=== PATIENT | male | born 1975 | race Caucasian/White ===

== ENCOUNTER 2024-01-28 18:40 | Inpatient (IN) | payer OTHER ==
[~2024-01-28] VITALS: Ht 167.6 cm; Wt 99.7 kg
[2024-01-28] MEDS ORDERED: ATOR10TA PO (20:41)
[2024-01-28] MEDS ORDERED: ASPI81TA39 PO (20:41)
[2024-01-28] MEDS ORDERED: METO25 PO (20:42)
[2024-01-28 20:50] LABS: BASOPHILS % (AUTO) 0.7 % (0.0-2.0); EOSINOPHILS % (AUTO) 1.9 % (1.0-6.0); HEMATOCRIT 26.1 % (41-53); HEMOGLOBIN 8.6 g/dL (13.5-17.5); LYMPHOCYTES # (AUTO) 1.3 K/uL (1.0-4.8); LYMPHOCYTES % (AUTO) 18.3 % (22.0-44.0); MEAN CORPUSCULAR HEMOGLOBIN 28.4 pg (26.0-34.0); MEAN CORPUSCULAR HGB CONC 32.9 G/dL (31.0-37.0); MEAN CORPUSCULAR VOLUME 86 fL (80-100); MONOCYTES # (AUTO) 0.7 K/uL (0.1-1.0); MONOCYTES % (AUTO) 10.7 % (2.0-9.0); NEUTROPHILS # (AUTO) 4.7 K/uL (1.8-7.7); NEUTROPHILS % (AUTO) 68.4 % (40.0-70.0); PLATELET COUNT (AUTO) 173 K/uL (150-450); RED BLOOD CELL COUNT(AUTO) 3.02 MIL/uL (4.50-5.90); RED CELL DISTRIBUTION WIDTH 15.8 % (11.5-14.5); WHITE BLOOD COUNT (AUTO) 6.9 K/uL (4.5-11.0)
[2024-01-28 20:59] LABS: ANION GAP 15 mmol/L (8-16); CALCIUM, TOTAL 8.1 mg/dL (8.8-10.5); CARBON DIOXIDE 23 mmol/L (22-29); CHLORIDE 99 mmol/L (98-107); CREATININE 14.74 mg/dL (0.60-1.30); GLOMERULAR FILTR. RATE CALC 4 mL/min (>60); GLUCOSE,RANDOM 97 mg/dL (70-110); POTASSIUM 4.2 mmol/L (3.5-5.1); SODIUM SERUM 137 mmol/L (136-145); UREA NITROGEN, BLOOD 56 mg/dL (7-18)
[2024-01-28 21:08] LABS: TROPONIN I-HIGH SENSITIVITY 34 ng/L (<76)
[2024-01-28 21:12] LABS: ALCOHOL, BLOOD (SERUM) < 3 mg/dL (0-10)
[2024-01-28] MEDS: LORazepam 1 MG TABLET PO ONE (22:33)
[2024-01-28] MEDS ORDERED: HYDROCODONE/ACETAMINOPHEN 5-325 MG TABLET PO PRN (23:30)
[2024-01-28] MEDS ORDERED: IPRATROPIUM BROMIDE 0.5 MG/2.5 ML NEB SOLUTION NEB PRN (23:30)
[2024-01-28] MEDS ORDERED: MORPHINE SULFATE 2 MG/ML SYRINGE IVP PRN (23:30)
[2024-01-28] MEDS ORDERED: ACETAMINOPHEN 325 MG TABLET PO PRN (23:30)
[2024-01-28] MEDS ORDERED: ALBUTEROL SULFATE 2.5 MG/0.5 ML NEB SOLUTION NEB PRN (23:30)
[2024-01-28] MEDS ORDERED: ONDANSETRON HCL 4 MG/2 ML VIAL IVP PRN (23:30)
[2024-01-28] MEDS ORDERED: BISACODYL 10 MG RECTAL RECTAL SUPPOSITORY PR PRN (23:30)
[2024-01-28] MEDS ORDERED: MAGNESIUM HYDROXIDE SUSPENSION 30 ML UDCUP PO PRN (23:30)
[2024-01-28] MEDS: HEPARIN SODIUM,PORCINE 5,000 UNITS/ML VIAL SQ SCH (23:57)
[2024-01-29] VITALS (11 sets, daily range): BP systolic 102–180; BP diastolic 51–116; PULSE 80–91; RESP 18–20; TEMP 97.6–97.7; O2SAT 94–98
[2024-01-29] MEDS: ZOLPIDEM TARTRATE 5 MG TABLET PO PRN (00:05)
[2024-01-29 07:36] LABS: ALCOHOL, URINE DRUG SCREEN NEGATIVE (NEGATIVE); AMPHET/METH SCREEN,URINE NEGATIVE (NEGATIVE); BARBITURATE SCREEN, URINE NEGATIVE (NEGATIVE); BENZODIAZEPINES SCREEN,URINE NEGATIVE (NEGATIVE); CANNABINOID SCREEN,URINE NEGATIVE (NEGATIVE); COCAINE SCREEN,URINE NEGATIVE (NEGATIVE); METHADONE SCREEN, URINE NEGATIVE (NEGATIVE); OPIATE SCREEN,URINE NEGATIVE (NEGATIVE); PHENCYCLIDINE SCREEN,URINE NEGATIVE (NEGATIVE)
[2024-01-29] MEDS: PANTOPRAZOLE SODIUM 40 MG DR TABLET PO SCH (08:23)
[2024-01-29] MEDS: METOPROLOL TARTRATE 25 MG TABLET PO SCH (08:23)
[2024-01-29] MEDS: ASPIRIN 81 MG CHEWABLE TABLET PO SCH (08:23)
[2024-01-29] MEDS: ATORVASTATIN CALCIUM 10 MG TABLET PO SCH (08:23)
[2024-01-29] MEDS ORDERED: SODIUM CHLORIDE 0.9% 2,000 ML ONE (10:29)
[2024-01-29] MEDS ORDERED: HEPARIN SODIUM,PORCINE 1,000 UNITS/ML VIAL IVP ONE (12:00)
[2024-01-29] MEDS ORDERED: METO25XL PO (13:25)
[2024-01-29] MEDS ORDERED: EPOE10006 SQ (13:33)
[2024-01-29] MEDS: HEPARIN SODIUM,PORCINE 1,000 UNITS/ML VIAL IVCATH ONE ×2 (14:30)
[2024-01-29] MEDS ORDERED: FOLIC ACID/VIT B COMPLEX AND C TABLET PO SCH (15:30)
[2024-01-29] MEDS ORDERED: EPOETIN ALFA 10,000 UNITS/ML VIAL SQ SCH (16:00)
[2024-01-29] MEDS ORDERED: ZOLPIDEM TARTRATE 5 MG TABLET PO SCH (21:00)
== END 2024-01-29 16:45 | DRG 124 ==
LOC: EMS 18:40 → EDH 23:46 → 5N 01-29 03:20
PROVIDERS: ADMIT Hospitalist; ATTEND Hospitalist
PROC: 5A1D70Z Performance of Urinary Filtration, Intermittent, Less than 6 Hours Per Day (ICD-10-PCS; principal; 2024-01-29)
DX: H53.8 Other visual disturbances (principal); N18.6 End stage renal disease; I12.0 Hypertensive chronic kidney disease with stage 5 chronic kidney disease or end stage renal disease; F13.20 Sedative, hypnotic or anxiolytic dependence, uncomplicated; E11.22 Type 2 diabetes mellitus with diabetic chronic kidney disease; F41.0 Panic disorder [episodic paroxysmal anxiety]; D64.9 Anemia, unspecified; E83.39 Other disorders of phosphorus metabolism; F41.1 Generalized anxiety disorder; G47.00 Insomnia, unspecified; Z99.2 Dependence on renal dialysis; Z90.49 Acquired absence of other specified parts of digestive tract
CPT/HCPCS: 70450; 71045; 72125; 80048; 80307; 84484; 85025; 90935; 92610; 93005; 93880; 99285; G0378; G0480; J0885; J1644; J7030; 36415-L1; 36415-TC

== ENCOUNTER 2024-01-31 09:39 | Inpatient (IN) | payer OTHER ==
[2024-01-31] VITALS (10 sets, daily range): BP systolic 100–171; BP diastolic 64–112; PULSE 70–93; RESP 18–20; TEMP 97.2–98.5; O2SAT 98–99
[~2024-01-31] VITALS: Ht 170.7 cm; Wt 96.8 kg
[~2024-01-31 09:39] MED LIST: ASPI81TA39 PO; ATOR10TA PO; EPOE10006 SQ; METO25XL PO
[2024-01-31 10:26] LABS: BASOPHILS % (AUTO) 0.8 % (0.0-2.0); EOSINOPHILS % (AUTO) 2.2 % (1.0-6.0); HEMATOCRIT 27.1 % (41-53); HEMOGLOBIN 9.4 g/dL (13.5-17.5); LYMPHOCYTES # (AUTO) 1.2 K/uL (1.0-4.8); LYMPHOCYTES % (AUTO) 21.3 % (22.0-44.0); MEAN CORPUSCULAR HEMOGLOBIN 29.5 pg (26.0-34.0); MEAN CORPUSCULAR HGB CONC 34.7 G/dL (31.0-37.0); MEAN CORPUSCULAR VOLUME 85 fL (80-100); MONOCYTES # (AUTO) 0.7 K/uL (0.1-1.0); MONOCYTES % (AUTO) 12.7 % (2.0-9.0); NEUTROPHILS # (AUTO) 3.5 K/uL (1.8-7.7); PLATELET COUNT (AUTO) 177 K/uL (150-450); RED CELL DISTRIBUTION WIDTH 15.7 % (11.5-14.5); WHITE BLOOD COUNT (AUTO) 5.5 K/uL (4.5-11.0)
[2024-01-31 10:36] LABS: ANION GAP 16 mmol/L (8-16); CALCIUM, TOTAL 8.4 mg/dL (8.8-10.5); CARBON DIOXIDE 25 mmol/L (22-29); CHLORIDE 97 mmol/L (98-107); CREATININE 12.53 mg/dL (0.60-1.30); GLOMERULAR FILTR. RATE CALC 4 mL/min (>60); GLUCOSE,RANDOM 105 mg/dL (70-110); POTASSIUM 4.2 mmol/L (3.5-5.1); SODIUM SERUM 138 mmol/L (136-145); UREA NITROGEN, BLOOD 41 mg/dL (7-18)
[2024-01-31 10:40] LABS: LIPASE 83 U/L (16-77); PHOSPHORUS 7.7 mg/dL (2.5-4.9)
[2024-01-31 10:41] LABS: B-TYPE NATRIURETIC PEPTIDE 510 pg/mL (0-100)
[2024-01-31 10:44] LABS: TROPONIN I-HIGH SENSITIVITY 25 ng/L (<76)
[2024-01-31 10:49] LABS: LACTIC ACID 0.9 mmol/L (0.4-2.0)
[2024-01-31] MEDS ORDERED: INSLAN SQ (10:56)
[2024-01-31] MEDS ORDERED: LOSA-382 PO (10:56)
[2024-01-31] MEDS ORDERED: INSU100V SQ (10:56)
[2024-01-31] MEDS ORDERED: PARO-38 PO (10:56)
[2024-01-31] MEDS ORDERED: FERR325T27 PO (10:56)
[2024-01-31] MEDS ORDERED: ACETAMINOPHEN 325 MG TABLET PO PRN (16:00)
[2024-01-31] MEDS ORDERED: MORPHINE SULFATE 2 MG/ML SYRINGE IVP PRN (16:00)
[2024-01-31] MEDS ORDERED: BISACODYL 10 MG RECTAL RECTAL SUPPOSITORY PR PRN (16:00)
[2024-01-31] MEDS: HEPARIN SODIUM,PORCINE 5,000 UNITS/ML VIAL SQ SCH (16:00)
[2024-01-31] MEDS ORDERED: ONDANSETRON HCL 4 MG/2 ML VIAL IVP PRN (16:00)
[2024-01-31] MEDS ORDERED: MAGNESIUM HYDROXIDE SUSPENSION 30 ML UDCUP PO PRN (16:00)
[2024-01-31] MEDS ORDERED: HYDROCODONE/ACETAMINOPHEN 5-325 MG TABLET PO PRN (16:00)
[2024-01-31] MEDS ORDERED: SODIUM CHLORIDE 0.9% 0 ML IV ONE (17:51)
[2024-01-31] MEDS: SEVELAMER CARBONATE 800 MG TABLET PO SCH (19:42)
[2024-01-31] MEDS: FERROUS SULFATE 325 MG EC TABLET PO SCH (19:42)
[2024-01-31] MEDS: IRON DEXTRAN COMPLEX 100 MG in SODIUM CHLORIDE 0.9% 100 ML IV SCH (19:43)
[2024-01-31] MEDS: HEPARIN SODIUM,PORCINE 1,000 UNITS/ML VIAL IVCATH ONE ×2 (19:47→19:48)
[2024-01-31] MEDS ORDERED: SODIUM CHLORIDE 0.9% 250 ML IV ONE (20:37)
[2024-01-31] MEDS: PARoxetine HCL 20 MG TABLET PO SCH (20:39)
[2024-01-31] MEDS: ZOLPIDEM TARTRATE 5 MG TABLET PO PRN (20:39)
[2024-01-31] MEDS: METOPROLOL SUCCINATE 25 MG ER TABLET PO SCH (20:39)
[2024-01-31] MEDS: DOCUSATE SODIUM 100 MG CAPSULE PO SCH (20:40)
[2024-01-31] MEDS: INSULIN GLARGINE,HUM.REC.ANLOG 100 UNITS/ML SQ SCH (20:53)
[2024-02-01 04:30] VITALS: BP 146/94; PULSE 90; RESP 16; TEMP 98.5; O2SAT 96
[2024-02-01 06:45] LABS: GLUCOMETER DEV NAME(LOC) 6S.2; GLUCOSE,POINT OF CARE 144 MG/DL (70-110)
[2024-02-01 09:26] VITALS: BP 151/92; PULSE 89; RESP 18; TEMP 98.5; O2SAT 96
[2024-02-01] MEDS: PANTOPRAZOLE SODIUM 40 MG DR TABLET PO SCH (09:28)
[2024-02-01] MEDS: ATORVASTATIN CALCIUM 10 MG TABLET PO SCH (09:28)
[2024-02-01] MEDS: LOSARTAN POTASSIUM 50 MG TABLET PO SCH (09:28)
[2024-02-01] MEDS: ASPIRIN 81 MG CHEWABLE TABLET PO SCH (09:28)
[2024-02-01] MEDS: PARICALCITOL 1 MCG CAPSULE PO SCH (09:28)
[2024-02-01] MEDS: EPOETIN ALFA 10,000 UNITS/ML VIAL SQ SCH (11:44)
[2024-02-01 19:25] VITALS: BP 164/98; PULSE 81; RESP 16; TEMP 98.2; O2SAT 98
[2024-02-02] VITALS (11 sets, daily range): BP systolic 118–172; BP diastolic 79–110; PULSE 66–93; RESP 16–18; TEMP 97.6–98.2; O2SAT 95–99
[2024-02-02 07:16] LABS: GLUCOMETER DEV NAME(LOC) 6S.2; GLUCOSE,POINT OF CARE 143 MG/DL (70-110)
[2024-02-02] MEDS: HEPARIN SODIUM,PORCINE 1,000 UNITS/ML VIAL IVCATH ONE ×2 (17:08)
[2024-02-02] MEDS ORDERED: HEPARIN SODIUM,PORCINE 1,000 UNITS/ML VIAL IVP ONE (17:51)
[2024-02-03 08:06] VITALS: BP 167/86; PULSE 86; RESP 19; TEMP 98.2; O2SAT 98
[2024-02-03 13:19] LABS: TROPONIN I-HIGH SENSITIVITY 19 ng/L (<76)
[2024-02-03 14:16] LABS: GLUCOMETER DEV NAME(LOC) 6S.2; GLUCOSE,POINT OF CARE 170 MG/DL (70-110)
[2024-02-03 15:15] VITALS: BP 158/97; PULSE 73; RESP 19; TEMP 97.9; O2SAT 98
[2024-02-03] MEDS ORDERED: HEPARIN SODIUM,PORCINE 1,000 UNITS/ML VIAL IVP ONE (18:10)
[2024-02-03 21:05] VITALS: BP 153/93; PULSE 61; RESP 18; TEMP 97; O2SAT 100
[2024-02-03] MEDS: CARVEDILOL 6.25 MG TABLET PO SCH (21:15)
[2024-02-03 22:56] LABS: GLUCOMETER DEV NAME(LOC) 6S.2; GLUCOSE,POINT OF CARE 140 MG/DL (70-110)
[2024-02-04 04:22] VITALS: BP 148/91; PULSE 71; RESP 18; TEMP 97.9; O2SAT 98
[2024-02-04 06:25] LABS: GLUCOMETER DEV NAME(LOC) 6S.2; GLUCOSE,POINT OF CARE 126 MG/DL (70-110)
[2024-02-04 09:53] VITALS: BP 127/78; PULSE 73; RESP 19; TEMP 98.1; O2SAT 96
[2024-02-04 14:30] VITALS: BP 145/88; PULSE 73; RESP 18; TEMP 97.9; O2SAT 99
[2024-02-04] MEDS ORDERED: SODIUM CHLORIDE 0.9% 250 ML IV ONE (17:36)
[2024-02-04 20:00] VITALS: BP 132/72; PULSE 67; RESP 19; TEMP 97.9; O2SAT 99
[2024-02-04 22:51] LABS: GLUCOMETER DEV NAME(LOC) 6S.2; GLUCOSE,POINT OF CARE 159 MG/DL (70-110)
[2024-02-05] VITALS (11 sets, daily range): BP systolic 83–171; BP diastolic 61–114; PULSE 68–90; RESP 16–18; TEMP 96.9–98.1; O2SAT 96–99
[2024-02-05 06:30] LABS: GLUCOMETER DEV NAME(LOC) 6S.2; GLUCOSE,POINT OF CARE 120 MG/DL (70-110)
[2024-02-05] MEDS ORDERED: SODIUM CHLORIDE 0.9% 1,000 ML ONE (07:24)
[2024-02-05 08:04] LABS: CREATININE 11.41 mg/dL (0.60-1.30)
[2024-02-05] MEDS ORDERED: HEPARIN SODIUM,PORCINE 1,000 UNITS/ML VIAL IVCATH ONE ×2 (12:15)
[2024-02-05] MEDS ORDERED: ALBUMIN HUMAN 25%-12.5GM/50ML IV BOTTLE IV PRN (12:30)
[2024-02-05] MEDS ORDERED: HEPARIN SODIUM,PORCINE 1,000 UNITS/ML VIAL IVP ONE (17:43)
[2024-02-05] MEDS ORDERED: ALBUMIN HUMAN 25%-12.5GM/50ML IV BOTTLE IV ONE (17:43)
[2024-02-05 23:30] LABS: GLUCOMETER DEV NAME(LOC) 6S.2; GLUCOSE,POINT OF CARE 185 MG/DL (70-110)
[2024-02-06 05:12] VITALS: BP 129/77; PULSE 85; RESP 18; TEMP 98.2; O2SAT 98
[2024-02-06 07:33] LABS: BASOPHILS % (AUTO) 0.6 % (0.0-2.0); HEMATOCRIT 29.7 % (41-53); HEMOGLOBIN 10.3 g/dL (13.5-17.5); LYMPHOCYTES # (AUTO) 1.4 K/uL (1.0-4.8); LYMPHOCYTES % (AUTO) 24.1 % (22.0-44.0); MEAN CORPUSCULAR HEMOGLOBIN 29.6 pg (26.0-34.0); MEAN CORPUSCULAR HGB CONC 34.7 G/dL (31.0-37.0); MEAN CORPUSCULAR VOLUME 85 fL (80-100); MONOCYTES # (AUTO) 0.6 K/uL (0.1-1.0); MONOCYTES % (AUTO) 10.5 % (2.0-9.0); NEUTROPHILS # (AUTO) 3.6 K/uL (1.8-7.7); NEUTROPHILS % (AUTO) 62.8 % (40.0-70.0); PLATELET COUNT (AUTO) 181 K/uL (150-450); RED BLOOD CELL COUNT(AUTO) 3.48 MIL/uL (4.50-5.90); RED CELL DISTRIBUTION WIDTH 16.3 % (11.5-14.5); WHITE BLOOD COUNT (AUTO) 5.7 K/uL (4.5-11.0)
[2024-02-06 07:49] LABS: CALCIUM, TOTAL 9.3 mg/dL (8.8-10.5); CREATININE 8.93 mg/dL (0.60-1.30); MAGNESIUM 2.5 mg/dL (1.80-2.40); POTASSIUM 3.4 mmol/L (3.5-5.1)
[2024-02-06 08:30] VITALS: BP 159/88; PULSE 82; RESP 18; TEMP 98.1; O2SAT 98
[2024-02-06 16:00] VITALS: BP 142/78; PULSE 83; RESP 18; TEMP 98; O2SAT 98
[2024-02-06 20:00] VITALS: BP 155/93; PULSE 78; RESP 18; TEMP 98.2; O2SAT 98
[2024-02-06 21:51] LABS: GLUCOMETER DEV NAME(LOC) 6S.2; GLUCOSE,POINT OF CARE 191 MG/DL (70-110)
[2024-02-07] VITALS (11 sets, daily range): BP systolic 109–150; BP diastolic 71–97; PULSE 73–94; RESP 16–18; TEMP 97.1–98.5; O2SAT 97
[2024-02-07] MEDS ORDERED: HEPARIN SODIUM,PORCINE 1,000 UNITS/ML VIAL IVP ONE (12:00)
[2024-02-07] MEDS: HEPARIN SODIUM,PORCINE 1,000 UNITS/ML VIAL IVCATH ONE ×2 (12:38)
[2024-02-07] MEDS: INSULIN GLARGINE,HUM.REC.ANLOG 100 UNITS/ML SQ SCH (20:55)
[2024-02-07 21:31] LABS: GLUCOMETER DEV NAME(LOC) 6S.2; GLUCOSE,POINT OF CARE 238 MG/DL (70-110)
[2024-02-08] MEDS: CALCIUM CARBONATE 500 MG CHEWABLE TABLET CHEW PRN (01:23)
[2024-02-08 08:31] VITALS: BP 126/76; PULSE 89; RESP 20; TEMP 98.4; O2SAT 98
[2024-02-08] MEDS ORDERED: PARI1CAP11 PO (11:40)
[2024-02-08] MEDS ORDERED: LINA5TAB PO (11:40)
[2024-02-08] MEDS ORDERED: PANT-31 PO (11:40)
[2024-02-08 16:42] VITALS: BP 132/79; PULSE 78; RESP 20; TEMP 98.4; O2SAT 99
== END 2024-02-08 18:41 | DRG 291 ==
LOC: EMS 09:39 → EDH 15:17 → 6S 15:25
PROVIDERS: ADMIT Internal Medicine; ATTEND Internal Medicine
PROC: 5A1D70Z Performance of Urinary Filtration, Intermittent, Less than 6 Hours Per Day (ICD-10-PCS; principal; 2024-01-31)
PROC: 5A1D70Z Performance of Urinary Filtration, Intermittent, Less than 6 Hours Per Day (ICD-10-PCS; 2024-02-05)
PROC: 5A1D70Z Performance of Urinary Filtration, Intermittent, Less than 6 Hours Per Day (ICD-10-PCS; 2024-02-07)
DX: I13.2 Hypertensive heart and chronic kidney disease with heart failure and with stage 5 chronic kidney disease, or end stage renal disease (principal); I50.33 Acute on chronic diastolic (congestive) heart failure; N18.6 End stage renal disease; R64 Cachexia; N25.81 Secondary hyperparathyroidism of renal origin; E46 Unspecified protein-calorie malnutrition; R62.7 Adult failure to thrive; E83.51 Hypocalcemia; Z99.2 Dependence on renal dialysis; E78.00 Pure hypercholesterolemia, unspecified; E11.22 Type 2 diabetes mellitus with diabetic chronic kidney disease; D63.1 Anemia in chronic kidney disease; E66.9 Obesity, unspecified; E83.39 Other disorders of phosphorus metabolism; F41.9 Anxiety disorder, unspecified; F10.10 Alcohol abuse, uncomplicated; E78.5 Hyperlipidemia, unspecified; Z91.018 Allergy to other foods; Z90.49 Acquired absence of other specified parts of digestive tract; Z79.4 Long term (current) use of insulin; Z79.899 Other long term (current) drug therapy; Z79.82 Long term (current) use of aspirin; Z68.33 Body mass index [BMI] 33.0-33.9, adult
CPT/HCPCS: 71045; 80048; 82565; 82962; 83605; 83690; 83735; 83880; 84100; 84484; 84520; 85025; 86706; 87081; 87340; 90935; 93005; 93306; 97166; 97535; 99285; J0885; J1644; J1750; J1815; J7030; J7050; P9047; 36415-L1; 36415-TC